=== PATIENT | female | born 1960 | race Caucasian/White ===

== ENCOUNTER 2021-11-06 08:08 | Day surgery (SDC) | payer OTHER ==
[~2021-11-06] VITALS: Ht 162.6 cm; Wt 61.9 kg
--- NOTE | 2021-11-06 13:53 | NUR ---
4 INCISIONS TO ABD WITH TEGADERM DRESSINGS ARE CDI, ALYSE DRAIN TO RLQ TO BULB SUCTIONS WITH S/S DRAINAGE. PT WAKES AND STATES SHE HAS PAIN THEN BACK TO SLEEP WITH A GRIMACE. B/P RUNS LOW NORMALLY PER SLIM. WILL LET REST AND CONTINUE TO MONITOR.
--- NOTE | 2021-11-06 14:53 | NUR ---
PT WOKE AND SAID SHE HAD TO URINATE. PT PUT ON BED HEWITT DUE TO THOUGHT BATHROOM WAS TOO FAR AWAY. DPAINFUL WILL OFFER FOOD, FLUIDS PAIN PILL.
--- NOTE | 2021-11-06 15:38 | NUR ---
PT VOIDED UP TO CHAIR WITHOUT DIFFICULTY. Patient up to Ambulate independently. Gait steady. Discharge instructions reviewed with patient. Patient verbalizes understanding. Copy given to patient to take home. Dressing to procedure site clean, dry, intact with no visible drainage, swelling, erythema or bruising noted. Patient States Post-Procedure ride home has been arranged. Discharged via wheelchair to private car for ride home. ALYSE DRAIN CARE DEMONSTRATED BY PATIENT AND STARTED DOCUMENTAION SHEET. IV OUT SITE CLEAR, CATH INTACT. .HAD ONE PAIN PILL AFGTER TOLERATING PO FOOD AND FLUIDS.
== END 2021-11-06 23:08 | disposition home or self-care (01) ==
LOC: ORSCMMR 08:08 → ORD 09:30 → ORSCMMR 23:08
PROVIDERS: Surgery
PROC: BF031ZZ Plain Radiography of Gallbladder and Bile Ducts using Low Osmolar Contrast (ICD-10-PCS; principal; 2021-11-06 09:30)
PROC: 0FT44ZZ Resection of Gallbladder, Percutaneous Endoscopic Approach (ICD-10-PCS; principal; 2021-11-06 09:30)
DX: K80.10 Calculus of gallbladder with chronic cholecystitis without obstruction (principal); F41.9 Anxiety disorder, unspecified; F90.9 Attention-deficit hyperactivity disorder, unspecified type; J45.909 Unspecified asthma, uncomplicated
CPT/HCPCS: 74300; 88304; A9270; C1729; J0694; J1100; J2250; J2370; J2405; J2704; J3010; J7120

== ENCOUNTER 2021-11-08 12:52 | Inpatient (IN) | payer OTHER ==
[~2021-11-08] VITALS: Ht 160 cm; Wt 59.0 kg
[2021-11-08 13:48] LABS: BASOPHILS ABSOLUTE AUTO 0.05 K/mm3 (0.00-0.23); BASOPHILS PERCENT AUTO 1 % (0-2); EOSINOPHILS ABSOLUTE AUTO 0.14 K/mm3 (0.00-0.68); EOSINOPHILS PERCENT AUTO 2 % (0-6); Hematocrit 43.2 % (33.0-51.0); Hemoglobin 14.1 g/dL (11.5-16.0); IMMATURE GRAN ABSOLUTE AUTO 0.02 K/mm3 (0.00-0.10); IMMATURE GRAN PERCENT AUTO 0 % (0-1); LYMPHOCYTES ABSOLUTE AUTO 2.07 K/mm3 (0.84-5.20); LYMPHOCYTES PERCENT AUTO 25 % (21-46); MONOCYTES ABSOLUTE AUTO 0.35 K/mm3 (0.16-1.47); MONOCYTES PERCENT AUTO 4 % (4-13); Mean Corpuscular HGB 31.3 pg (26.0-34.0); Mean Corpuscular HGB Conc 32.6 g/dL (31.5-36.5); Mean Corpuscular Volume 96 fL (80-100); Mean Platelet Volume 10.5 fL (9.1-12.4); NEUTROPHILS ABSOLUTE AUTO 5.78 K/mm3 (1.96-9.15); NEUTROPHILS PERCENT AUTO 69 % (41-73); Platelet Count 288 K/mm3 (150-400); RDW Coefficient Variation 12.9 % (11.7-14.2); RDW Standard Deviation 45.6 fL (35.1-46.3); Red Blood Cell Count 4.51 M/mm3 (3.80-5.20); White Blood Cell Count 8.41 K/mm3 (4.00-11.30)
[2021-11-08 14:28] LABS: Alanine Aminotransfer (ALT/SGP 402 U/L (12-78); Albumin, Blood 3.1 g/dL (3.4-5.0); Albumin/Globulin Ratio 0.8 (0.8-1.8); Alk Phos 355 U/L (50-136); Anion Gap 7 mmol/L (6-16); Aspartate Aminotrans (AST/SGOT 177 U/L (12-37); Bilirubin, Total 0.3 mg/dL (0.1-1.0); Blood Urea Nitrogen 15 mg/dL (8-24); Bun/Creatinine Ratio 20.1 (12.0-20.0); CO2, Blood 28 mmol/L (21-32); Calcium, Blood 9.3 mg/dL (8.5-10.1); Chloride, Blood 106 mmol/L (98-108); Creatinine, Blood 0.75 mg/dL (0.40-1.00); Globulin, Blood 3.7 g/dL (2.2-4.0); Glomerular Filtration Rate >60 (60-); Glucose, Blood 90 mg/dL (70-99); Sodium, Blood 141 mmol/L (136-145); Total Protein, Blood 6.8 g/dL (6.4-8.2)
[2021-11-08] MEDS ORDERED: HYDROCODONE-AC1 EA15 PO (19:38)
--- NOTE | 2021-11-09 01:00 | NUR ---
LATE ENTRY: PT ARRIVED TO MEDICAL FLOOR AT 2240, ESCORTED BY PHYSICIAN CINTIA. PT AMBULATED WITH 2 PERSON ASSIST TO BSC, AND THEN TO MEDICAL FLOOR BED. BED IN LOWEST POSITION, BED ALARM ON, CALL LIGHT WITHIN REACH. PT A&0 X4, CONTINENT OF URINE, 2 PERSON ASSIST DUE TO WEAKNESS/PAIN. IV ACCESS IN RIGHT AC, INFUSING NS AT 100ML/HR. ROOM AIR. LUNG SOUNDS CLEAR. BOWEL SOUNDS ACTIVE IN ALL FOUR QUADRANTS. PT REPORTS SHE HAS NOT HAD A BM SINCE HER CHOLECYSTECTOMY ON 11/06/21. LUEK REQUESTED THAT RN CONTACT HER DAUGHTER INGE TO GIVE STATUS UPDATE. RN CALLED INGE, AND ANSWERED QUESTIONS/EDUCATED THAT OUR PRIORITY IS TO MANAGE PAIN FOR ACUTE PANCREATITIS. PT INITIALLY C/O NAUSEA AND STOMACH PAIN, RECEIVED REGLAN 25MG IV AND TYLENOL PO 650 MG. PT ANSWERED A FEW ASSESSMENTS QUESTIONS, THEN STATED SHE WAS "VERY TIRED" AND FELL ASLEEP. RN CONTINUED TO MONITOR PT, WHO REMAINS ASLEEP AT THE TIME OF THIS WRITING.
--- NOTE | 2021-11-09 03:47 | NUR ---
PHONE CALL TO PHYSICIAN RN PLACED CALL TO DR. TODD, PT IS HAVING BREAK THROUGH PAIN THAT IS NOT ADEQUATELY CONTROLLED BY CURRENT PAIN MEDICATION. WHEN PT BECOMES PAINFUL, SHE EXPERIENCES ANXIETY. DR. TODD WITH ORDERS FOR ATIVAN 0.5-1 MG IV Q 8 HRS PRN AND DILAUDID 1-2MG IV Q6 HRS PRN. VERBAL ORDER, READ BACK. UPDATED ORDERS IN EMAR.
--- NOTE | 2021-11-09 05:23 | NUR ---
SHIFT SUMMARY LUKE ADMITTED FOR SEVERE PANCREATITIS AND WORSENING PAIN, S/P CHOLECYSTECTOMY ON 11/06/21. PLAN IS SUPPORTIVE MANAGEMENT, INCLUDING FLUIDS AND PAIN CONTROL. STARTED ANTIBIOTICS DUE TO SIGNIFICANT INFLAMMATION FOUND DURING PROCEDURE ON 11/06/21. ALYSE DRAIN IN PLACE TO RUQ, DRAINING SANGUINOUS FLUID. RN DRAINED 100ML THIS SHIFT. FULL CODE. ROOM AIR. A&O X4. LUNGS CLEAR. IV ACCESS TO RIGHT AC, INFUSING NORMAL SALINE. PT REPORTS THAT SHE HAS NO CHRONIC HEALTH CONDITIONS. PT ANXIOUS WHEN SHE BECOMES PAINFUL. SHE DOES RESPOND WELL TO VERBAL COACHING FOR DEEP BREATHING AND SLOW POSITION CHANGES. PRN ATIVAN ON JAN. PT C/O DYSURIA. NO BM SINCE 11/05/21. BED ALARM ON. GAIT WEAK/IMPAIRED SECONDARY TO PAIN. 2 PERSON ASSIST IN ROOM TO BSC. SHE DID USE BEDPAN ONCE LAST NIGHT BECAUSE PAIN PREVENTED HER FROM AMBULATING TO BSC. BED ALARM ON, BED IN LOWEST POSITION, CALL LIGHT WITHIN REACH.
[2021-11-09 05:48] LABS: BASOPHILS ABSOLUTE AUTO 0.04 K/mm3 (0.00-0.23); BASOPHILS PERCENT AUTO 1 % (0-2); EOSINOPHILS ABSOLUTE AUTO 0.19 K/mm3 (0.00-0.68); EOSINOPHILS PERCENT AUTO 3 % (0-6); Hematocrit 40.5 % (33.0-51.0); Hemoglobin 13.3 g/dL (11.5-16.0); IMMATURE GRAN ABSOLUTE AUTO 0.02 K/mm3 (0.00-0.10); IMMATURE GRAN PERCENT AUTO 0 % (0-1); LYMPHOCYTES ABSOLUTE AUTO 2.05 K/mm3 (0.84-5.20); LYMPHOCYTES PERCENT AUTO 32 % (21-46); MONOCYTES ABSOLUTE AUTO 0.52 K/mm3 (0.16-1.47); MONOCYTES PERCENT AUTO 8 % (4-13); Mean Corpuscular HGB 31.5 pg (26.0-34.0); Mean Corpuscular HGB Conc 32.8 g/dL (31.5-36.5); Mean Corpuscular Volume 96 fL (80-100); Mean Platelet Volume 10.4 fL (9.1-12.4); NEUTROPHILS PERCENT AUTO 56 % (41-73); Platelet Count 250 K/mm3 (150-400); RDW Coefficient Variation 12.8 % (11.7-14.2); RDW Standard Deviation 45.1 fL (35.1-46.3); Red Blood Cell Count 4.22 M/mm3 (3.80-5.20); White Blood Cell Count 6.42 K/mm3 (4.00-11.30)
[2021-11-09 06:30] LABS: Alanine Aminotransfer (ALT/SGP 267 U/L (12-78); Albumin, Blood 2.6 g/dL (3.4-5.0); Albumin/Globulin Ratio 0.8 (0.8-1.8); Alk Phos 287 U/L (50-136); Anion Gap 7 mmol/L (6-16); Aspartate Aminotrans (AST/SGOT 83 U/L (12-37); Bilirubin, Total 0.3 mg/dL (0.1-1.0); Blood Urea Nitrogen 12 mg/dL (8-24); CO2, Blood 27 mmol/L (21-32); Calcium, Blood 8.6 mg/dL (8.5-10.1); Chloride, Blood 107 mmol/L (98-108); Creatinine, Blood 0.71 mg/dL (0.40-1.00); Globulin, Blood 3.3 g/dL (2.2-4.0); Glomerular Filtration Rate >60 (60-); Glucose, Blood 93 mg/dL (70-99); Potassium, Blood 3.9 mmol/L (3.5-5.5); Sodium, Blood 141 mmol/L (136-145); Total Protein, Blood 5.9 g/dL (6.4-8.2)
--- NOTE | 2021-11-09 18:46 | NUR ---
Alert and oriented x3 , able to make needs known. c/o abdomen pain. pain was managed with Dilaudid and Fentanyl, it was effective. Vital signs are stable. NS infusing at 75 ml/hr. MRI at 9am tomorrow. ALYSE drained 80 ml, the site is CDI. Tylenol was given for headche , it was effective. Continue to monitor.
[2021-11-10 04:44] LABS: BASOPHILS ABSOLUTE AUTO 0.03 K/mm3 (0.00-0.23); BASOPHILS PERCENT AUTO 0 % (0-2); EOSINOPHILS ABSOLUTE AUTO 0.26 K/mm3 (0.00-0.68); EOSINOPHILS PERCENT AUTO 4 % (0-6); Hematocrit 40.9 % (33.0-51.0); Hemoglobin 13.5 g/dL (11.5-16.0); IMMATURE GRAN ABSOLUTE AUTO 0.01 K/mm3 (0.00-0.10); IMMATURE GRAN PERCENT AUTO 0 % (0-1); LYMPHOCYTES ABSOLUTE AUTO 2.02 K/mm3 (0.84-5.20); LYMPHOCYTES PERCENT AUTO 30 % (21-46); MONOCYTES ABSOLUTE AUTO 0.57 K/mm3 (0.16-1.47); MONOCYTES PERCENT AUTO 8 % (4-13); Mean Corpuscular HGB 31.3 pg (26.0-34.0); Mean Corpuscular Volume 95 fL (80-100); Mean Platelet Volume 10.2 fL (9.1-12.4); NEUTROPHILS ABSOLUTE AUTO 3.87 K/mm3 (1.96-9.15); NEUTROPHILS PERCENT AUTO 57 % (41-73); Platelet Count 257 K/mm3 (150-400); RDW Coefficient Variation 12.4 % (11.7-14.2); RDW Standard Deviation 43.6 fL (35.1-46.3); Red Blood Cell Count 4.31 M/mm3 (3.80-5.20); White Blood Cell Count 6.76 K/mm3 (4.00-11.30)
[2021-11-10 05:26] LABS: Alanine Aminotransfer (ALT/SGP 195 U/L (12-78); Albumin, Blood 2.5 g/dL (3.4-5.0); Albumin/Globulin Ratio 0.8 (0.8-1.8); Alk Phos 267 U/L (50-136); Anion Gap 8 mmol/L (6-16); Aspartate Aminotrans (AST/SGOT 58 U/L (12-37); Bilirubin, Total 0.4 mg/dL (0.1-1.0); Blood Urea Nitrogen 10 mg/dL (8-24); Bun/Creatinine Ratio 12.6 (12.0-20.0); CO2, Blood 29 mmol/L (21-32); Calcium, Blood 8.9 mg/dL (8.5-10.1); Chloride, Blood 105 mmol/L (98-108); Creatinine, Blood 0.79 mg/dL (0.40-1.00); Globulin, Blood 3.2 g/dL (2.2-4.0); Glomerular Filtration Rate >60 (60-); Glucose, Blood 94 mg/dL (70-99); Potassium, Blood 3.7 mmol/L (3.5-5.5); Sodium, Blood 142 mmol/L (136-145); Total Protein, Blood 5.7 g/dL (6.4-8.2)
--- NOTE | 2021-11-10 06:39 | NUR ---
SHIFT SUMMARY: PATIENT CONTINUES TO HAVE RUQ ABD. PAIN 8-9/10. 1 MG IV DILAUDID GIVEN X2 AND IV FENTANYL X1 FOR BREATHROUGH PAIN, PROVIDED GOOD PAIN CONTROL. IVF ARE INFUSING PER MD ORDER AND PATIENT HAS BEEN NPO SINCE 399 FOR MRI TOF.
--- NOTE | 2021-11-10 18:07 | NUR ---
Alert and oriented x3 , able to make needs known. c/o abdomen pain , fentanyl and Dilaudid were given for pain management , it was effective. Vital signs are stable. ALYSE out 115 ml. lab sites CDI. Used bedside commode for voiding. Continue on clear liquid diet at tolerated. Continue on ABO therapy , no adverse effect noted. Call light within reach. Continue to monitor.
--- NOTE | 2021-11-11 04:59 | NUR ---
PATIENT WAS ALERT AND ORIENTED X3, STABEL VITALS, NO ACUTE CHANGES, PATIENT COMPLAINED ABOUT PIAN ONLY ONCE DURING THE SHIFT AND WAS GIVEN DILAUDID.PATIENT SLEPT FOR MOST OF THE SHIFT.ALYSE DRIAIN OUTPUT WAS 100ML.
[2021-11-11 06:18] LABS: Alanine Aminotransfer (ALT/SGP 139 U/L (12-78); Albumin, Blood 2.3 g/dL (3.4-5.0); Albumin/Globulin Ratio 0.7 (0.8-1.8); Alk Phos 223 U/L (50-136); Anion Gap 8 mmol/L (6-16); Aspartate Aminotrans (AST/SGOT 37 U/L (12-37); Bilirubin, Total 0.4 mg/dL (0.1-1.0); Blood Urea Nitrogen 9 mg/dL (8-24); Bun/Creatinine Ratio 12.5 (12.0-20.0); CO2, Blood 27 mmol/L (21-32); Calcium, Blood 8.6 mg/dL (8.5-10.1); Chloride, Blood 106 mmol/L (98-108); Creatinine, Blood 0.72 mg/dL (0.40-1.00); Globulin, Blood 3.1 g/dL (2.2-4.0); Glomerular Filtration Rate >60 (60-); Glucose, Blood 97 mg/dL (70-99); Potassium, Blood 3.7 mmol/L (3.5-5.5); Sodium, Blood 141 mmol/L (136-145); Total Protein, Blood 5.4 g/dL (6.4-8.2)
[2021-11-11] MEDS ORDERED: ESCI10 PO (13:17)
[2021-11-11] MEDS ORDERED: SENNA LAXATIVE8.6 MG PO (13:18)
[2021-11-11] MEDS ORDERED: MIRALAX17 GM PO (13:18)
[2021-11-11] MEDS ORDERED: FAMO20 PO (13:18)
[2021-11-11] MEDS ORDERED: Atarax10 MG PO (13:18)
--- NOTE | 2021-11-11 16:26 | NUR ---
Alert and oriented x3 , able to make needs known. Denies any nausea , vomiting and chest pain. Vital signs are stable. Tolerated diet clear liquid and was advanced as tolerated. ALYSE drained 75 ml, the site is CDI.Three lab sites are CDI. Patient discharged home in a stable condition and discharge instruction acknowledged.
== END 2021-11-11 15:10 | disposition home or self-care (01) | DRG 948 ==
LOC: ER 12:52 → MEDS 12:53 → ENPENDDIS 11-11 13:12 → MEDS 11-11 15:10
PROVIDERS: Emergency Medicine; Family Medicine; ADMIT Internal Medicine
DX: G89.18 Other acute postprocedural pain (principal); K59.03 Drug induced constipation; T40.605A Adverse effect of unspecified narcotics, initial encounter; F06.4 Anxiety disorder due to known physiological condition; K83.8 Other specified diseases of biliary tract
CPT/HCPCS: 36415; 74176; 74181; 80053; 83690; 84145; 85025; 94760; 96365; 96375; 99285-25; A9270; J0295; J1170; J1650; J1956; J2270; J2550; J3010; J7030

== ENCOUNTER 2021-12-25 15:10 | Emergency (ER) | payer OTHER ==
[~2021-12-25] VITALS: Ht 160 cm; Wt 61.2 kg
[~2021-12-25 15:10] MED LIST: Atarax10 MG PO; ESCI10 PO; FAMO20 PO; HYDROCODONE-AC1 EA15 PO; MIRALAX17 GM PO; SENNA LAXATIVE8.6 MG PO
[2021-12-25] MEDS ORDERED: Amoxicillin500 MG PO (15:23)
== END 2021-12-25 15:24 | disposition home or self-care (01) ==
LOC: ER 15:10
DX: K02.9 Dental caries, unspecified (principal)
CPT/HCPCS: 99282

== ENCOUNTER 2023-03-09 09:42 | Emergency (ER) | payer OTHER ==
[~2023-03-09] VITALS: Ht 160 cm; Wt 63.5 kg
[~2023-03-09 09:42] MED LIST changes: +Amoxicillin500 MG PO
[2023-03-09] MEDS ORDERED: Prednisone20 MG PO (09:53)
== END 2023-03-09 09:57 | disposition home or self-care (01) ==
LOC: ER 09:42
DX: L23.7 Allergic contact dermatitis due to plants, except food (principal); Z79.899 Other long term (current) drug therapy
CPT/HCPCS: 99282

== ENCOUNTER 2025-08-03 16:20 | Emergency (ER) | payer OTHER ==
[~2025-08-03] VITALS: Ht 160 cm; Wt 67.6 kg
[~2025-08-03 16:20] MED LIST changes: +Prednisone20 MG PO
[2025-08-03 17:01] LABS: BASOPHILS ABSOLUTE AUTO 0.08 K/mm3 (0.00-0.23); BASOPHILS PERCENT AUTO 1 % (0-2); EOSINOPHILS ABSOLUTE AUTO 0.11 K/mm3 (0.00-0.68); EOSINOPHILS PERCENT AUTO 1 % (0-6); Hematocrit 40.9 % (33.0-51.0); Hemoglobin 13.8 g/dL (11.5-16.0); IMMATURE GRAN ABSOLUTE AUTO 0.01 K/mm3 (0.00-0.10); IMMATURE GRAN PERCENT AUTO 0 % (0-1); LYMPHOCYTES ABSOLUTE AUTO 2.01 K/mm3 (0.84-5.20); LYMPHOCYTES PERCENT AUTO 26 % (21-46); MONOCYTES ABSOLUTE AUTO 0.49 K/mm3 (0.16-1.47); MONOCYTES PERCENT AUTO 6 % (4-13); Mean Corpuscular HGB Conc 33.7 g/dL (31.5-36.5); Mean Corpuscular Volume 93 fL (80-100); NEUTROPHILS ABSOLUTE AUTO 4.94 K/mm3 (1.96-9.15); NEUTROPHILS PERCENT AUTO 65 % (41-73); NRBC ABSOLUTE 0.00 K/mm3 (0.00-0.02); NRBC Auto 0.0 /100 WBC (0.0-0.2); Platelet Count 267 K/mm3 (150-400); RDW Coefficient Variation 12.6 % (11.7-14.2); RDW Standard Deviation 43.0 fL (35.1-46.3)
[2025-08-03 17:22] LABS: Alanine Aminotransfer (ALT/SGP 53.0 U/L (12-78); Albumin, Blood 3.7 g/dL (3.4-5.0); Albumin/Globulin Ratio 1.0 (0.8-1.8); Anion Gap 12.0 mmol/L (3-11); Aspartate Aminotrans (AST/SGOT 37.0 U/L (12-37); Bilirubin, Total 0.3 mg/dL (0.1-1.0); Blood Urea Nitrogen 19.0 mg/dL (8-24); CO2, Blood 22.0 mmol/L (21-32); Calcium, Blood 9.2 mg/dL (8.5-10.1); Chloride, Blood 108.0 mmol/L (98-108); Creatinine, Blood 1.09 mg/dL (0.40-1.00); Globulin, Blood 3.7 g/dL (2.2-4.0); Glucose, Blood 151.0 mg/dL (70-99); Potassium, Blood 3.5 mmol/L (3.5-5.5); Sodium, Blood 138.0 mmol/L (136-145); Total Protein, Blood 7.4 g/dL (6.4-8.2)
[2025-08-03 19:17] VITALS: BP 121/94
[2025-08-03] MEDS ORDERED: Ketorolac Tromethamine 15mg Vial IV ONE (20:10)
[2025-08-03] MEDS ORDERED: FentaNYL Citrate 50 MCG/ML 2 ML Injection IV ONE (20:35)
[2025-08-03] MEDS ORDERED: RX Prepack 6 Tabs Oxycodone 5mg UD ONE (20:35)
[2025-08-03] MEDS ORDERED: Ibuprofen600 MG PO (20:37)
== END 2025-08-03 21:25 | disposition home or self-care (01) ==
LOC: ER 16:20
PROVIDERS: Emergency Medicine
DX: S62.002A Unspecified fracture of navicular [scaphoid] bone of left wrist, initial encounter for closed fracture (principal); R73.9 Hyperglycemia, unspecified; Z79.899 Other long term (current) drug therapy; V19.9XXA Pedal cyclist (driver) (passenger) injured in unspecified traffic accident, initial encounter; Y93.55 Activity, bike riding; Z59.89 Other problems related to housing and economic circumstances
CPT/HCPCS: 29125; 70450; 73090; 73100; 80053; 85025; 93005; 93010; 96374; 96375; 99285-25; A9270; J1885; J3010